=== PATIENT | male | born 1960 | race Caucasian/White ===

== ENCOUNTER 2017-05-11 15:59 | Inpatient (IN) | payer SELFPAY ==
[2017-05-11] MEDS ORDERED: methylPREDNISolone Sodium Succinate 125 MG/2 ML SDV IV ONE (16:00)
[2017-05-11] MEDS ORDERED: methylPREDNISolone Sodium Succinate 125 MG/2 ML SDV ONE (16:13)
[2017-05-11] MEDS ORDERED: Albuterol/Ipratropium 3.0-0.5 MG/3 ML Neb Soln INH ONE (16:15)
[2017-05-11] MEDS ORDERED: Acetaminophen 325 MG Tab PO ONE (18:25)
[2017-05-11 19:06] LABS: CHLORIDE,CL 106 mmol/L (98-110); SODIUM,NA 141 mmol/L (136-146)
[2017-05-11] MEDS ORDERED: hydrALAZINE 20 MG/ML SDV IVPUSH ONE (20:17)
[2017-05-11] MEDS ORDERED: Ondansetron 4 MG Tab.DIS PO PRN (20:17)
[2017-05-11] MEDS ORDERED: Temazepam 15 MG Cap PO PRN (20:17)
[2017-05-11] MEDS ORDERED: predniSONE 10 MG Tab PO SCH (20:30)
[2017-05-11] MEDS ORDERED: Levofloxacin/Dextrose 5%-Water 750 MG in Premix Bag 1 BAG IV SCH (20:30)
--- NOTE | 2017-05-11 20:42 | PCM.HP ---
H&P History of Present Illness - General Date of Service: 05/11/17 Admit Problem/Dx: Admission Diagnosis/Problem Admission Diagnosis/Problem Shortness of breath Source of Information: Patient History Limitations: Reports: No Limitations - History of Present Illness Initial Comments - Free Text/Narative: 56 yo male presented to ED with SOB starting at 3 am this morning with 35+ pack year smoking history. Patient states that around 3 am this morning patient woke with increasing shortness of breath. He was able to go back to sleep but in am when walking down the stairs from his 3 floor apartment the sob increased. He has had similar episodes previously but not as severe. He states that it took him "quite awhile" to get back up the stairs and when he did he knew he had to go into the ED for evaluation. He then drove himself to the ED. He denies any associated chest pain, nausea, or diaphoresis with the shortness of breath. In addition he states that he has not been eating well over the last few days and reports drinking no fluids. He also began to have a cough this am with clear to white sputum production. Patient has not seen a doctor for greater than 10 years. He has no know drug allergies. In the ED patient was found to be mildly hypoxic and required 2 L/nasal canula to maintain sats above 90%. He was given duo-nebs and 125 solumedrol which he states helped with his breathing. He was found to have Rhadomyolysis with a CK of 1661 and leukocytosis of 12k. EKG showed NSR with no acute signs of ischemia and troponin was neg. Rest of CMP was unremarkable. Patient was given IVF resus and started on Levaquin for possible CAP. Patient was admitted for shortness of breath with suspected COPD exacerbation, community acquired pneumonia, and rhabdomyolysis. abdominal pain Pain Score (Numeric/FACES): 10 - Related Data Allergies/Adverse Reactions: Allergies Allergy/AdvReac Type Severity Reaction Status Date / Time No Known Allergies Allergy Verified 05/11/17 18:43 Home Medications: Home Meds . [No Known Home Meds] 05/11/17 [History] Past Medical History Respiratory History: Reports: COPD - Past Surgical History Head Surgeries/Procedures: Reports: None Social & Family History - Family History Family Medical History: Noncontributory - Tobacco Use Smoking Status *Q: Current Every Day Smoker Years of Tobacco use: 30 Packs/Tins Daily: 1.5 Used Tobacco, but Quit: No Tobacco Use Comment: accepts nicotine patch, will inform Dr. Humphrey Second Hand Smoke Exposure: No - Caffeine Use Caffeine Use: Reports: Energy Drinks - Alcohol Use Days Per Week of Alcohol Use: 0 - Recreational Drug Use Recreational Drug Use: No H&P Review of Systems - Review of Systems: Review Of Systems: See Below General: Reports: Fatigue, Night Sweats. Denies: Fever, Chills, Malaise, Weakness, Diaphoresis HEENT: Denies: Headaches, Sinus Congestion, Sore Throat Pulmonary: Reports: Shortness of Breath, Wheezing, Cough, Sputum. Denies: Pleuritic Chest Pain Cardiovascular: Denies: Chest Pain, Palpitations, Edema Gastrointestinal: Reports: Nausea. Denies: Abdominal Pain, Anorexia, Black Stool, Bloody Stool, Constipation, Diarrhea, Vomiting Genitourinary: Denies: Dysuria, Hematuria Musculoskeletal: Denies: Neck Pain, Leg Pain Skin: Denies: Cyanosis Psychiatric: Reports: Anxiety. Denies: Confusion Neurological: Denies: Confusion, Dizziness, Headache Hematologic/Lymphatic: Denies: Anemia Exam - Exam Exam: See Below - Vital Signs Vital Signs: Last Vital Signs Temp Pulse 84 05/11/17 18:44 Resp 18 05/11/17 18:44 BP 192/92 H 05/11/17 18:44 Pulse Ox 96 05/11/17 18:44 Weight: 81.556 kg - Exam Quality Assessment: Supplemental Oxygen, DVT Prophylaxis General: Alert, Oriented, Cooperative HEENT: Conjunctiva Clear, EACs Clear, EOMI, Hearing Intact, Mucosa Moist & Tarrants , Nares Patent, Normal Nasal Septum, Posterior Pharynx Clear, PERRLA Neck: Supple, Trachea Midline, 2 Lungs: Normal Respiratory Effort, Crackles, Wheezing Cardiovascular: Regular Rate, Regular Rhythm, Normal S1, Normal S2 GI/Abdominal Exam: Normal Bowel Sounds, Soft, Non-Tender, No Organomegaly, No Distention Back Exam: Normal Inspection Extremities: Normal Inspection, Non-Tender, No Pedal Edema, Normal Capillary Refill Peripheral Pulses: 2+: Radial (L), Radial (R), Posterior Tibial (L), Posterior Tibial (R), Dorsalis Pedis (L), Dorsalis Pedis (R) Skin: Warm, Dry, Intact Neurological: Cranial Nerves Intact Neuro Extensive - Mental Status: Alert, Oriented x3, Normal Mood/Affect, Normal Cognition Neuro Extensive - Motor, Sensory, Reflexes: CN II-XII Intact Psychiatric: Alert, Normal Affect, Normal Mood - Patient Data Result Diagrams: 05/11/17 16:03 05/11/17 16:03 *Q Meaningful Use (ADM) - VTE *Q VTE Criteria *Q: - Stroke *Q Stroke Criteria *Q: - AMI *Q AMI Criteria *Q: - Problem List (1) COPD with exacerbation SNOMED Code(s): 664298049946148 ICD Code: J44.1 - CHRONIC OBSTRUCTIVE PULMONARY DISEASE W (ACUTE) EXACERBATION Status: Acute Priority: High Current Visit: Yes (2) Community acquired bacterial pneumonia SNOMED Code(s): 706579964 ICD Code: J15.9 - UNSPECIFIED BACTERIAL PNEUMONIA Status: Acute Priority : High Current Visit: Yes (3) Rhabdomyolysis SNOMED Code(s): 093380014 ICD Code: M62.82 - RHABDOMYOLYSIS Status: Acute Priority: High Current Visit: Yes Qualifiers: Rhabdomyolysis type: non-traumatic Qualified Code(s): M62.82 - Rhabdomyolysis (4) Nicotine dependence SNOMED Code(s): 35800079 ICD Code: F17.200 - NICOTINE DEPENDENCE, UNSPECIFIED, UNCOMPLICATED Status : Chronic Priority: Low Current Visit: Yes Qualifiers: Nicotine product type: cigarettes Substance use status: uncomplicated Qualified Code(s): F17.210 - Nicotine dependence, cigarettes, uncomplicated Problem List Initiated/Reviewed/Updated: Yes Orders Last 24hrs: Active Orders 24 hr Category Date Time Status Patient Status [ADT] Routine ADT 05/11/17 20:17 Ordered Antiembolic Devices [RC] PER UNIT ROUTINE Care 05/11/17 20:20 Ordered Oxygen Therapy [RC] PRN Care 05/11/17 20:17 Ordered RT Aerosol Therapy [RC] ASDIRECTED Care 05/11/17 20:20 Ordered Up With Assistance [RC] ASDIRECTED Care 05/11/17 20:17 Ordered VTE/DVT Education [RC] PER UNIT ROUTINE Care 05/11/17 20:17 Ordered Vital Signs [RC] Q4H Care 05/11/17 20:17 Ordered Regular Diet [DIET] Diet 05/11/17 Breakfast Ordered Chest 2V [CR] Stat Exams 05/11/17 20:17 Ordered CBC WITH AUTO DIFF [HEME] AM Lab 05/12/17 05:11 Ordered CBC WITH AUTO DIFF [HEME] AM Lab 05/13/17 05:11 Ordered CBC WITH AUTO DIFF [HEME] AM Lab 05/14/17 05:11 Ordered CBC WITH AUTO DIFF [HEME] AM Lab 05/15/17 05:11 Ordered COMPREHENSIVE METABOLIC PN,CMP [CHEM] AM Lab 05/12/17 05:11 Ordered COMPREHENSIVE METABOLIC PN,CMP [CHEM] AM Lab 05/13/17 05:11 Ordered COMPREHENSIVE METABOLIC PN,CMP [CHEM] AM Lab 05/14/17 05:11 Ordered COMPREHENSIVE METABOLIC PN,CMP [CHEM] AM Lab 05/15/17 05:11 Ordered CREATINE KINASE,CK [CHEM] AM Lab 05/12/17 05:11 Ordered CREATINE KINASE,CK [CHEM] AM Lab 05/13/17 05:11 Ordered CREATINE KINASE,CK [CHEM] AM Lab 05/14/17 05:11 Ordered CREATINE KINASE,CK [CHEM] AM Lab 05/15/17 05:11 Ordered CULTURE SPUTUM + SMEAR [RM] Routine Lab 05/11/17 20:17 Uncollected MAGNESIUM [CHEM] AM Lab 05/12/17 05:11 Ordered PHOSPHORUS [CHEM] AM Lab 05/12/17 05:11 Ordered Acetaminophen [Tylenol] Med 05/11/17 20:17 Ordered 650 mg PO Q4H PRN Albuterol/Ipratropium [DuoNeb 3.0-0.5 MG/3 ML] Med 05/11/17 22:00 Ordered 3 ml NEB Q4HRRT Enoxaparin [Lovenox] Med 05/11/17 20:30 Ordered 40 mg SUBCUT DAILY Levofloxacin/Dextrose 5%-Water [Levaquin in D5W 750 MG/ Med 05/11/17 20:30 Ordered 150 ML] 750 mg Premix Bag 1 bag IV Q24H Nicotine [Habitrol] Med 05/11/17 20:30 Ordered 14 mg TRDERM DAILY Ondansetron [Zofran ODT] Med 05/11/17 20:17 Ordered 4 mg PO Q4H PRN Sodium Chloride 0.9% [Normal Saline] 1,000 ml Med 05/11/17 20:30 Ordered IV ASDIRECTED Temazepam [Restoril] Med 05/11/17 20:17 Ordered 15 mg PO BEDTIME PRN hydrALAZINE [Apresoline] Med 05/11/17 20:17 Once 10 mg IVPUSH ONETIME ONE predniSONE Med 05/11/17 20:30 Ordered 60 mg PO DAILY Sequential Compression Device [OM.PC] Per Unit Routine Oth 05/11/17 20:19 Ordered Resuscitation Status Routine Resus Stat 05/11/17 20:17 Ordered Assessment/Plan Comment:: 56 yo male admitted 05/11/17 for shortness of breath, suspected COPD exacerbation, community acquired pneumonia, and rhabdomyolysis. SOB: 35+ pack yr smoking history strongly suspect COPD exacerbation. Improved with duo-nebs and solumedrol in ED. Will cont. scheduled duo-nebs and start patient on 60 mg prednisone PO. No significant respiratory distress at this time. Ween O2 as tolerated. Rhabdo: CK 1661 Suspect severe dehydration as etiology. No history of recent trauma. Will IVF resus with NS 200 ml/hr with strict I/O. Monitor K, kidney function, and calcium. CK daily. Consider bicarb if CK>5000. CAP: Low suspecion but will get repeat CXR and place on 750 Levaquin q day. Htn: May be anxiety related will give 10 hydralazine now and monitor may need to start oral medication if continues to be elevated. Nicotine dependence: Patient does want to quite smoking. Is currently a 1 pk a day smoker. Will give transdermal nicotine replacement 14 mg and provide patient with smoking cessation help. VTE proph:SCD, Lovenox. Dispo: 2-3 days
[2017-05-11] MEDS: Nicotine 14 MG/24 Hr Patch TRDERM SCH (20:53)
[2017-05-11] MEDS: Enoxaparin 40 MG/0.4 ML Syringe SUBCUT SCH (20:54)
[2017-05-11] MEDS: Sodium Chloride 0.9% 1,000 ML IV SCH (20:59)
[2017-05-11] MEDS: Albuterol/Ipratropium 3.0-0.5 MG/3 ML Neb Soln NEB SCH (21:16)
[2017-05-11] MEDS: LORazepam 0.5 MG Tab PO PRN (23:31)
[2017-05-12] MEDS: Albuterol/Ipratropium 3.0-0.5 MG/3 ML Neb Soln NEB SCH ×6 (01:52→22:36)
[2017-05-12] MEDS: Sodium Chloride 0.9% 1,000 ML IV SCH ×4 (03:22→19:07)
[2017-05-12] MEDS: Acetaminophen 325 MG Tab PO PRN ×2 (05:36→14:29)
[2017-05-12] MEDS: LORazepam 0.5 MG Tab PO PRN (05:36)
[2017-05-12 07:40] LABS: CHLORIDE,CL 109 mmol/L (98-110); SODIUM,NA 139 mmol/L (136-146)
[2017-05-12] MEDS ORDERED: Levofloxacin 500 MG Tab ONE (08:24)
[2017-05-12] MEDS: Enoxaparin 40 MG/0.4 ML Syringe SUBCUT SCH (08:30)
[2017-05-12] MEDS: Nicotine 14 MG/24 Hr Patch TRDERM SCH (08:30)
[2017-05-12] MEDS: Metoprolol Tartrate 50 MG Tab PO SCH ×2 (08:31→20:14)
--- NOTE | 2017-05-12 08:50 | PCM.PN ---
- General Info Date of Service: 05/12/17 Admission Dx/Problem (Free Text): Admission Diagnosis/Problem Admission Diagnosis/Problem Shortness of breath Subjective Update: Feels better this morning after duo-nebs and steroids. Still having generalized anxiety over being in the hospital. Temazepam only worked for 1 hr last evening but Ativan helped more. Denies any pain. Some cough with clear/ white sputum production. No chest pain, palpitations. Feels breathing improved. Appetite has returned and he is now eating and drinking without difficulty. Functional Status: Reports: Pain Controlled - Review of Systems General: Denies: Fever, Weakness, Fatigue HEENT: Denies: Headaches, Visual Changes Pulmonary: Reports: Shortness of Breath, Cough, Sputum, Wheezing. Denies: Pleuritic Chest Pain, Hemoptysis Cardiovascular: Denies: Chest Pain, Palpitations Gastrointestinal: Denies: Abdominal Pain, Constipation, Diarrhea, Nausea, Vomiting Genitourinary: Denies: Dysuria, Hematuria Musculoskeletal: Denies: Neck Pain, Leg Pain Skin: Denies: Cyanosis Neurological: Denies: Confusion, Dizziness, Headache Psychiatric: Reports: Anxiety. Denies: Confusion - Patient Data Vitals - Most Recent: Last Vital Signs Temp 98.1 F 05/12/17 07:53 Pulse 80 05/12/17 08:31 Resp 18 05/12/17 07:53 BP 179/84 H 05/12/17 08:31 Pulse Ox 95 05/12/17 07:53 Weight - Most Recent: 81.556 kg I&O - Last 24 Hours: Intake & Output 05/11/17 05/12/17 05/12/17 22:59 06:59 14:59 Intake Total 1254 Output Total 850 Balance 404 Lab Results Last 24 Hours: Laboratory Results - last 24 hr 05/12/17 05/12/17 Range/Units 06:12 06:12 WBC 8.77 (4.0-11.0) K/uL RBC 4.69 (4.50-5.90) M/uL Hgb 14.4 (13.0-17.0) g/dL Hct 42.3 (38.0-50.0) % MCV 90.2 (80.0-98.0) fL MCH 30.7 (27.0-32.0) pg MCHC 34.0 (31.0-37.0) g/dL RDW Std Deviation 48.1 (28.0-62.0) fl RDW Coeff of Shannan 15 (11.0-15.0) % Plt Count 272 (150-400) K/uL MPV 9.70 (7.40-12.00) fL Neut % (Auto) 90.3 H (48.0-80.0) % Lymph % (Auto) 7.0 L (16.0-40.0) % [place] % (Auto) 2.6 (0.0-15.0) % Eos % (Auto) 0.0 (0.0-7.0) % Baso % (Auto) 0.1 (0.0-1.5) % Neut # (Auto) 7.9 H (1.4-5.7) K/uL Lymph # (Auto) 0.6 (0.6-2.4) K/uL [place] # (Auto) 0.2 (0.0-0.8) K/uL Eos # (Auto) 0.0 (0.0-0.7) K/uL Baso # (Auto) 0.0 (0.0-0.1) K/uL Nucleated RBC % 0.0 /100WBC Nucleated RBCs # 0 K/uL Sodium 139 (136-146) mmol/L Potassium 3.7 (3.5-5.1) mmol/L Chloride 109 (98-110) mmol/L Carbon Dioxide 20 L (21-31) mmol/L BUN 13 (6.0-23.0) mg/dL Creatinine 0.7 (0.6-1.5) mg/dL Est Cr Clr Drug Dosing 109.42 mL/min Estimated GFR (MDRD) > 60.0 ml/min Glucose 135 H (60-110) mg/dL Calcium 8.7 L (8.8-10.8) mg/dL Phosphorus 2.3 L (2.4-4.7) mg/dL Magnesium 1.3 L (1.5-2.3) mEq/L Total Bilirubin 0.4 (0.1-1.5) mg/dL AST 33 (5-40) IU/L ALT 35 (8-54) IU/L Alkaline Phosphatase 101 (40-150) Creatine Kinase 931 H (9-236) IU/L Total Protein 6.8 (6.0-8.0) g/dL Albumin 3.8 (3.5-5.0) g/dL Globulin 3.0 (2.0-3.5) g/dL Albumin/Globulin Ratio 1.3 (1.3-2.8) Behzad Results Last 24 Hours: Microbiology 05/12/17 02:15 Gram Stain - Preliminary Sputum - Expectorated Med Orders - Current: Current Medications Acetaminophen (Tylenol) 650 mg PO Q4H PRN PRN Reason: Pain (Mild 1-3)/fever Last Admin: 05/12/17 05:36 Dose: 650 mg Albuterol/Ipratropium (Duoneb 3.0-0.5 Mg/3 Ml) 3 ml NEB Q4HRRT [facility] Last Admin: 05/12/17 05:58 Dose: 3 ml Enoxaparin Sodium (Lovenox) 40 mg SUBCUT DAILY [facility] Last Admin: 05/12/17 08:30 Dose: 40 mg Sodium Chloride (Normal Saline) 1,000 mls @ 200 mls/hr IV ASDIRECTED [facility] Last Admin: 05/12/17 08:30 Dose: 200 mls/hr Levofloxacin (Levaquin) 750 mg PO Q24H [facility] Lorazepam (Ativan) 0.5 mg PO Q6H PRN PRN Reason: Anxiety Last Admin: 05/12/17 05:36 Dose: 0.5 mg Metoprolol Tartrate (Lopressor) 50 mg PO BID [facility] Last Admin: 05/12/17 08:31 Dose: 50 mg Nicotine (Habitrol) 14 mg TRDERM DAILY [facility] Last Admin: 05/12/17 08:30 Dose: 14 mg Ondansetron HCl (Zofran Odt) 4 mg PO Q4H PRN PRN Reason: nausea, able to take PO Prednisone (Prednisone) 60 mg PO DAILY [facility] Temazepam (Restoril) 15 mg PO BEDTIME PRN PRN Reason: Sleep Last Admin: 05/11/17 20:59 Dose: 15 mg Discontinued Medications Hydralazine HCl (Apresoline) 10 mg IVPUSH ONETIME ONE Stop: 05/11/17 20:18 Last Admin: 05/11/17 20:53 Dose: 10 mg Levofloxacin/Dextrose 750 mg/ (Premix) 150 mls @ 100 mls/hr IV Q24H [facility] Last Admin: 05/11/17 20:53 Dose: 100 mls/hr Levofloxacin (Levaquin) Confirm Administered Dose 1,000 mg .ROUTE .STK-MED ONE Stop: 05/12/17 08:25 Last Admin: 05/12/17 08:32 Dose: 1,000 mg Prednisone (Prednisone) 60 mg PO DAILY [facility] Last Admin: 05/11/17 20:54 Dose: 60 mg - Exam Quality Assessment: Supplemental Oxygen, DVT Prophylaxis General: Alert, Oriented, Cooperative, No Acute Distress HEENT: Pupils Equal, Pupils Reactive, EOMI, Mucous Membr. Moist/[place] Neck: Supple, Trachea Midline Lungs: Normal Respiratory Effort, Wheezing Cardiovascular: Regular Rate, Regular Rhythm, No Murmurs GI/Abdominal Exam: Normal Bowel Sounds, Soft, Non-Tender, No Organomegaly, No Distention Back Exam: Normal Inspection Extremities: Normal Inspection, Non-Tender, No Pedal Edema, Normal Capillary Refill Peripheral Pulses: 2+: Radial (L), Radial (R), Posterior Tibial (L), Posterior Tibial (R), Dorsalis Pedis (L), Dorsalis Pedis (R) Skin: Warm, Dry, Intact Wound/Incisions: Healing Well Neurological: No New Focal Deficit Psy/Mental Status: Alert, Normal Affect, Normal Mood - Problem List & Annotations (1) COPD with exacerbation SNOMED Code(s): 701766014566895 Code(s): J44.1 - CHRONIC OBSTRUCTIVE PULMONARY DISEASE W (ACUTE) EXACERBATION Status: Acute Priority: High Current Visit: Yes (2) Community acquired bacterial pneumonia SNOMED Code(s): 502723443 Code(s): J15.9 - UNSPECIFIED BACTERIAL PNEUMONIA Status: Acute Priority: High Current Visit: Yes (3) Rhabdomyolysis SNOMED Code(s): 677972438 Code(s): M62.82 - RHABDOMYOLYSIS Status: Acute Priority: High Current Visit: Yes Qualifiers: Rhabdomyolysis type: non-traumatic Qualified Code(s): M62.82 - Rhabdomyolysis (4) Nicotine dependence SNOMED Code(s): 12562943 Code(s): F17.200 - NICOTINE DEPENDENCE, UNSPECIFIED, UNCOMPLICATED Status: Chronic Priority: Low Current Visit: Yes Qualifiers: Nicotine product type: cigarettes Substance use status: uncomplicated Qualified Code(s): F17.210 - Nicotine dependence, cigarettes, uncomplicated - Problem List Review Problem List Initiated/Reviewed/Updated: Yes - My Orders Last 24 Hours: My Active Orders 05/11/17 20:17 Patient Status [ADT] Routine Oxygen Therapy [RC] PRN Up With Assistance [RC] ASDIRECTED VTE/DVT Education [RC] PER UNIT ROUTINE Vital Signs [RC] Q4H Acetaminophen [Tylenol] 650 mg PO Q4H PRN Ondansetron [Zofran ODT] 4 mg PO Q4H PRN Temazepam [Restoril] 15 mg PO BEDTIME PRN Resuscitation Status Routine 05/11/17 20:19 Sequential Compression Device [OM.PC] Per Unit Routine 05/11/17 20:20 Antiembolic Devices [RC] PER UNIT ROUTINE RT Aerosol Therapy [RC] ASDIRECTED 05/11/17 20:30 Enoxaparin [Lovenox] 40 mg SUBCUT DAILY Nicotine [Habitrol] 14 mg TRDERM DAILY Sodium Chloride 0.9% [Normal Saline] 1,000 ml IV ASDIRECTED 05/11/17 22:00 Albuterol/Ipratropium [DuoNeb 3.0-0.5 MG/3 ML] 3 ml NEB Q4HRRT 05/11/17 23:19 LORazepam [Ativan] 0.5 mg PO Q6H PRN 05/12/17 02:15 CULTURE SPUTUM + SMEAR [RM] Routine 05/12/17 09:00 Chest 2V [CR] Stat Metoprolol Tartrate [Lopressor] 50 mg PO BID predniSONE 60 mg PO DAILY 05/12/17 21:00 Levofloxacin [Levaquin] 750 mg PO Q24H 05/13/17 05:11 CBC WITH AUTO DIFF [HEME] AM COMPREHENSIVE METABOLIC PN,CMP [CHEM] AM CREATINE KINASE,CK [CHEM] AM 05/14/17 05:11 CBC WITH AUTO DIFF [HEME] AM COMPREHENSIVE METABOLIC PN,CMP [CHEM] AM CREATINE KINASE,CK [CHEM] AM 05/15/17 05:11 CBC WITH AUTO DIFF [HEME] AM COMPREHENSIVE METABOLIC PN,CMP [CHEM] AM CREATINE KINASE,CK [CHEM] AM - Plan Plan:: 56 yo male admitted 05/11/17 for shortness of breath, suspected COPD exacerbation, community acquired pneumonia, and rhabdomyolysis. SOB: Strongly suspect COPD. Continues to improve with duo-nebs and oral prednisone. Will cont. scheduled duo-nebs and 60 mg prednisone PO. Ween O2 as tolerated. Rhabdo: CK down from 1661 to 931 this am. Suspect severe dehydration as etiology. No history of recent trauma. Cont. IVF resus with NS 200 ml/hr with strict I/O. Cont. to monitor K, kidney function, and calcium. CK daily. Consider bicarb if CK>5000. CAP: Low suspecion. CXR now available revealed bullous changes involving both lung apices but no infiltration. Patient did have leukocytosis of 12k on admission but most likely related to stress reaction. Secondary to COPD, leukocytosis will continue Levaquin orally Day 2. Htn: Did give patient 2 doses of 10 mg hydralazine since admission. Started Lopressor 50 mg BID this am. Somewhat anxiety related but most likely underlying essential hypertension. Did give Ativan last evening which seemed to help with BP as well as sleep. Cont. Ativan 1 mg q 6 prn Nicotine dependence: Cont. nicotine replacement. Patient does want to quite. Provide patient with smoking cessation information. VTE proph:SCD, Lovenox. Dispo: 1-2 days
[2017-05-12] MEDS: predniSONE 20 MG Tab PO SCH (09:06)
[2017-05-12] MEDS ORDERED: hydrALAZINE 20 MG/ML SDV IVPUSH ONE (11:51)
[2017-05-12] MEDS: Benzocaine/Cetylpyridinium/Menthol Lozenge MUCMEM PRN ×2 (14:29→20:16)
[2017-05-12] MEDS: LORazepam 1 MG Tab PO PRN (14:35)
[2017-05-12] MEDS ORDERED: Temazepam 15 MG Cap PO PRN (19:05)
[2017-05-12] MEDS ORDERED: Levofloxacin 250 MG Tab PO SCH (21:00)
[2017-05-13] MEDS: Sodium Chloride 0.9% 1,000 ML IV SCH ×3 (00:22→10:05)
[2017-05-13] MEDS: Albuterol/Ipratropium 3.0-0.5 MG/3 ML Neb Soln NEB SCH ×3 (02:03→09:56)
[2017-05-13] MEDS: LORazepam 1 MG Tab PO PRN (03:33)
[2017-05-13 05:45] LABS: CHLORIDE,CL 114 mmol/L (98-110); SODIUM,NA 142 mmol/L (136-146)
[2017-05-13] MEDS: predniSONE 20 MG Tab PO SCH (08:12)
[2017-05-13] MEDS: Nicotine 14 MG/24 Hr Patch TRDERM SCH (08:12)
[2017-05-13] MEDS: Metoprolol Tartrate 50 MG Tab PO SCH (08:13)
[2017-05-13] MEDS: Enoxaparin 40 MG/0.4 ML Syringe SUBCUT SCH (08:13)
[2017-05-13] MEDS ORDERED: Lisinopril 10 MG Tab PO SCH (10:45)
[2017-05-13 10:55] VITALS: BP 140/89
--- NOTE | 2017-05-13 11:40 | PCM.DCSUM1 ---
Discharge Summary - Hospital Course Brief History: 56 yo male presented to ED with SOB with 35+ pack year smoking history. Patient states that around 3 am this morning patient woke with increasing shortness of breath. He was able to go back to sleep but in am when walking down the stairs from his 3 floor apartment the sob increased. He has had similar episodes previously but not as severe. He states that it took him "quite awhile" to get back up the stairs and when he did he knew he had to go into the ED for evaluation. He then drove himself to the ED. He denies any associated chest pain, nausea, or diaphoresis with the shortness of breath. In addition he states that he has not been eating well over the last few days and reports drinking no fluids. He also began to have a cough this am with clear to white sputum production. Patient has not seen a doctor for greater than 10 years. He has no know drug allergies. In the ED patient was found to be mildly hypoxic and required 2 L/nasal canula to maintain sats above 90%. He was given duo-nebs and 125 solumedrol which he states helped with his breathing. He was found to have Rhadomyolysis with a CK of 1661 and leukocytosis of 12k. EKG showed NSR with no acute signs of ischemia and troponin was neg. Rest of CMP was unremarkable. Patient was given IVF resus and started on Levaquin for possible CAP. Patient was admitted for shortness of breath with suspected COPD exacerbation, community acquired pneumonia, and rhabdomyolysis. - Discharge Data Discharge Date: 05/13/17 Discharge Disposition: Home, Self-Care 01 Condition: Good - Discharge Diagnosis/Problem(s) (1) COPD with exacerbation SNOMED Code(s): 934306551136733 ICD Code: J44.1 - CHRONIC OBSTRUCTIVE PULMONARY DISEASE W (ACUTE) EXACERBATION Status: Acute Priority: High Current Visit: Yes (2) Community acquired bacterial pneumonia SNOMED Code(s): 415370958 ICD Code: J15.9 - UNSPECIFIED BACTERIAL PNEUMONIA Status: Acute Priority : High Current Visit: Yes (3) Rhabdomyolysis SNOMED Code(s): 518098961 ICD Code: M62.82 - RHABDOMYOLYSIS Status: Acute Priority: High Current Visit: Yes Qualifiers: Rhabdomyolysis type: non-traumatic Qualified Code(s): M62.82 - Rhabdomyolysis (4) Nicotine dependence SNOMED Code(s): 50782187 ICD Code: F17.200 - NICOTINE DEPENDENCE, UNSPECIFIED, UNCOMPLICATED Status : Chronic Priority: Low Current Visit: Yes Qualifiers: Nicotine product type: cigarettes Substance use status: uncomplicated Qualified Code(s): F17.210 - Nicotine dependence, cigarettes, uncomplicated - Patient Instructions Diet: Regular Diet as Tolerated Activity: As Tolerated Driving: May Drive Today Showering/Bathing: May Shower Notify Provider of: Fever, Increased Pain, Swelling and Redness, Drainage, Nausea and/or Vomiting Other/Special Instructions: Smoking cessation encouraged! - Discharge Plan Prescriptions/Med Rec: Albuterol [IJP: Ventolin HFA] 1 puff INH Q4H PRN #1 inh PRN Reason: SOB/wheezing Levofloxacin [Levaquin] 750 mg PO DAILY #5 tablet Lisinopril [Prinivil] 10 mg PO DAILY #30 tablet Metoprolol Tartrate [Lopressor] 50 mg PO BID #60 tablet Mometasone/Formoterol [Dulera 100-5 MCG] 2 puff IH BID #1 inhaler Nicotine [Habitrol] 14 mg TRDERM DAILY #1 box predniSONE [Prednisone] 10 - 60 mg PO DAILY #36 tablet Home Medications: Home Meds Albuterol [IJP: Ventolin HFA] 1 puff INH Q4H PRN #1 inh 05/13/17 [Rx] Benzocaine/Cetylpyrd/Menthol [Cepacol Sore Throat] 1 lozenge MUCMEM Q4H PRN chester 05/13/17 [Rx] Levofloxacin [Levaquin] 750 mg PO DAILY #5 tablet 05/13/17 [Rx] Lisinopril [Prinivil] 10 mg PO DAILY #30 tablet 05/13/17 [Rx] Metoprolol Tartrate [Lopressor] 50 mg PO BID #60 tablet 05/13/17 [Rx] Mometasone/Formoterol [Dulera 100-5 MCG] 2 puff IH BID #1 inhaler 05/13/17 [Rx] Nicotine [Habitrol] 14 mg TRDERM DAILY #1 box 05/13/17 [Rx] predniSONE [Prednisone] 10 - 60 mg PO DAILY #36 tablet 05/13/17 [Rx] Patient Handouts: Chronic Obstructive Pulmonary Disease Exacerbation, Easy-to- Read, Rhabdomyolysis, Metoprolol tablets, Albuterol inhalation aerosol, Formoterol; Mometasone metered dose inhaler, Lisinopril tablets, Levofloxacin tablets, Nicotine skin patches, Prednisone tablets, Community-Acquired Pneumonia , Adult, [id number] Referrals: Josh Oviedo MD [Physician] - 05/20/17 8:30 am - Discharge Summary/Plan Comment DC Time >30 min.: No Discharge Summary/Plan Comment: Discharge Diagnoses: Suspected COPD exacerbation Community acquired pneumonia HTN Anxiety Mariano was admitted and treated with Levaquin for CAP. He was also treated for suspected COPD exacerbation, no PFTs in past but with long standing history of tobacco use. He was treated with Prednisone 60 mg daily and Duonebs. He continued to improved and leukocytosis improved. He was also noted to have mild rhabdomyolysis likely secondary to dehydration and acute illness. He was treated with IVFs and CPK today is 481. Patient is requesting discharge home. He is no longer needing oxygen and SOB has improved. BP and HR were noted to be elevated, which may be from IVFs and DUonebs. He was started on metoprolol and Lisniopril to controll BP, which it has done ok. He was encouraged to follow up with PCP, which he will be set up with a new provider. It is highly recommended to obtain PFTs when acute illness and exacerbation is clear to evaluate for COPD. He was discharged home on Prednisone taper, Levaquin for 5 more days, Albuterol rescue inhaler, Dulera BID, Lopressor 50 mg BID and Lisinopril 10 mg daily. He reports he may not be able to get all of these medications, but he was encouraged to obtain all that he could as they are all very important, but for sure the Levaquin and Prednisone. He is to return to ED or clinic if concerns should arise. - General Info Date of Service: 05/13/17 Admission Dx/Problem (Free Text: Admission Diagnosis/Problem Admission Diagnosis/Problem Shortness of breath Subjective Update: Sitting on edge of bed, reports feeling good, No chest pain or SOB. Requesting discharge home today. Functional Status: Reports: Pain Controlled, Tolerating Diet, Ambulating, Urinating - Review of Systems General: Reports: No Symptoms. Denies: Fever, Weakness, Fatigue Pulmonary: Reports: No Symptoms. Denies: Shortness of Breath, Wheezing Cardiovascular: Reports: No Symptoms. Denies: Chest Pain, Lightheadedness Gastrointestinal: Reports: No Symptoms. Denies: Abdominal Pain, Nausea, Vomiting Skin: Reports: No Symptoms. Denies: Cyanosis Neurological: Reports: No Symptoms. Denies: Confusion Psychiatric: Reports: No Symptoms. Denies: Confusion - Patient Data Vitals - Most Recent: Last Vital Signs Temp 98.3 F 05/13/17 08:00 Pulse 79 05/13/17 08:13 Resp 18 05/13/17 08:00 BP 140/89 05/13/17 10:54 Pulse Ox 94 L 05/13/17 08:00 Weight - Most Recent: 81.556 kg I&O - Last 24 hours: Intake & Output 05/12/17 05/13/17 05/13/17 22:59 06:59 14:59 Intake Total 2662 2666 Output Total 1025 630 Balance 1637 2036 Lab Results - Last 24 hrs: Laboratory Results - last 24 hr 05/13/17 05/13/17 05/13/17 Range/Units 04:56 04:56 08:56 WBC 10.80 (4.0-11.0) K/uL RBC 4.25 L (4.50-5.90) M/uL Hgb 12.9 L (13.0-17.0) g/dL Hct 38.9 (38.0-50.0) % MCV 91.5 (80.0-98.0) fL MCH 30.4 (27.0-32.0) pg MCHC 33.2 (31.0-37.0) g/dL RDW Std Deviation 49.7 (28.0-62.0) fl RDW Coeff of Shannan 15 (11.0-15.0) % Plt Count 262 (150-400) K/uL MPV 10.00 (7.40-12.00) fL Neut % (Auto) 76.5 (48.0-80.0) % Lymph % (Auto) 15.7 L (16.0-40.0) % [place] % (Auto) 6.9 (0.0-15.0) % Eos % (Auto) 0.6 (0.0-7.0) % Baso % (Auto) 0.3 (0.0-1.5) % Neut # (Auto) 8.3 H (1.4-5.7) K/uL Lymph # (Auto) 1.7 (0.6-2.4) K/uL [place] # (Auto) 0.7 (0.0-0.8) K/uL Eos # (Auto) 0.1 (0.0-0.7) K/uL Baso # (Auto) 0.0 (0.0-0.1) K/uL Nucleated RBC % 0.0 /100WBC Nucleated RBCs # 0 K/uL Sodium 142 (136-146) mmol/L Potassium 3.7 (3.5-5.1) mmol/L Chloride 114 H (98-110) mmol/L Carbon Dioxide 21 (21-31) mmol/L BUN 16 (6.0-23.0) mg/dL Creatinine 0.7 (0.6-1.5) mg/dL Est Cr Clr Drug Dosing 109.42 mL/min Estimated GFR (MDRD) > 60.0 ml/min Glucose 96 (60-110) mg/dL Calcium 8.1 L (8.8-10.8) mg/dL Phosphorus 2.2 L (2.4-4.7) mg/dL Magnesium 1.6 (1.5-2.3) mEq/L Total Bilirubin 0.4 (0.1-1.5) mg/dL AST 24 (5-40) IU/L ALT 25 (8-54) IU/L Alkaline Phosphatase 75 (40-150) Creatine Kinase 481 H (9-236) IU/L Total Protein 5.6 L (6.0-8.0) g/dL Albumin 3.3 L (3.5-5.0) g/dL Globulin 2.3 (2.0-3.5) g/dL Albumin/Globulin Ratio 1.4 (1.3-2.8) COURTNEY Results - Last 24 hrs: Microbiology 05/12/17 02:15 Gram Stain - Preliminary Sputum - Expectorated Med Orders - Current: Current Medications Acetaminophen (Tylenol) 650 mg PO Q4H PRN PRN Reason: Pain (Mild 1-3)/fever Last Admin: 05/12/17 14:29 Dose: 650 mg Albuterol/Ipratropium (Duoneb 3.0-0.5 Mg/3 Ml) 3 ml NEB Q4HRRT [facility] Last Admin: 05/13/17 09:56 Dose: 3 ml Benzocaine/Menthol (Cepacol Sore Throat) 1 lozenge MUCMEM Q4H PRN PRN Reason: Sore Throat Last Admin: 05/12/17 20:16 Dose: 1 lozenge Enoxaparin Sodium (Lovenox) 40 mg SUBCUT DAILY [facility] Last Admin: 05/13/17 08:13 Dose: 40 mg Sodium Chloride (Normal Saline) 1,000 mls @ 200 mls/hr IV ASDIRECTED [facility] Last Admin: 05/13/17 10:05 Dose: 200 mls/hr Levofloxacin (Levaquin) 750 mg PO Q24H [facility] Last Admin: 05/12/17 20:14 Dose: 750 mg Lisinopril (Prinivil) 10 mg PO DAILY [facility] Last Admin: 05/13/17 10:54 Dose: 10 mg Lorazepam (Ativan) 1 mg PO Q6H PRN PRN Reason: Anxiety Last Admin: 05/13/17 03:33 Dose: 1 mg Metoprolol Tartrate (Lopressor) 50 mg PO BID [facility] Last Admin: 05/13/17 08:13 Dose: 50 mg Nicotine (Habitrol) 14 mg TRDERM DAILY [facility] Last Admin: 05/13/17 08:12 Dose: 14 mg Ondansetron HCl (Zofran Odt) 4 mg PO Q4H PRN PRN Reason: nausea, able to take PO Prednisone (Prednisone) 60 mg PO DAILY [facility] Last Admin: 05/13/17 08:12 Dose: 60 mg Temazepam (Restoril) 15 mg PO BEDTIME PRN PRN Reason: Insomnia Last Admin: 05/12/17 20:15 Dose: 15 mg Discontinued Medications Acetaminophen (Tylenol) 650 mg PO .STK-MED ONE Stop: 05/11/17 18:26 Albuterol/Ipratropium (Duoneb 3.0-0.5 Mg/3 Ml) 3 ml INH .STK-MED ONE Stop: 05/11/17 16:16 Hydralazine HCl (Apresoline) 10 mg IVPUSH ONETIME ONE Stop: 05/11/17 20:18 Last Admin: 05/11/17 20:53 Dose: 10 mg Hydralazine HCl (Apresoline) 10 mg IVPUSH STAT ONE Stop: 05/12/17 11:52 Last Admin: 05/12/17 12:01 Dose: 10 mg Levofloxacin/Dextrose 750 mg/ (Premix) 150 mls @ 100 mls/hr IV Q24H GALINDO Last Admin: 05/11/17 20:53 Dose: 100 mls/hr Levofloxacin (Levaquin) Confirm Administered Dose 1,000 mg .ROUTE .STK-MED ONE Stop: 05/12/17 08:25 Last Admin: 05/12/17 08:32 Dose: 1,000 mg Lorazepam (Ativan) 0.5 mg PO Q6H PRN PRN Reason: Anxiety Last Admin: 05/12/17 05:36 Dose: 0.5 mg Methylprednisolone Sodium Succinate (Solu-Medrol) 125 mg .ROUTE .STK-MED ONE Stop: 05/11/17 16:14 Prednisone (Prednisone) 60 mg PO DAILY GALINDO Last Admin: 05/11/17 20:54 Dose: 60 mg Temazepam (Restoril) 15 mg PO BEDTIME PRN PRN Reason: Sleep Last Admin: 05/11/17 20:59 Dose: 15 mg - Exam General: Reports: Alert, Oriented, Cooperative, No Acute Distress Neck: Reports: Supple Lungs: Reports: Normal Respiratory Effort, Wheezing (scant throughout) Cardiovascular: Reports: Regular Rate, Regular Rhythm GI/Abdominal Exam: Normal Bowel Sounds, Soft, Non-Tender, No Organomegaly, No Distention, No Abnormal Bruit, No Mass, Pelvis Stable Extremities: Normal Inspection, Normal Range of Motion, Non-Tender, No Pedal Edema, Normal Capillary Refill Neurological: Reports: No New Focal Deficit Psy/Mental Status: Reports: Alert, Normal Affect, Normal Mood *Q Meaningful Use (DIS) - VTE *Q VTE Criteria *Q: - Stroke *Q Stroke Criteria *Q: - AMI *Q AMI Criteria *Q:
--- NOTE | 2017-05-13 15:49 | CR ---
EXAM DATE: 05/11/17 PATIENT'S AGE: 56 Patient: DANIELA BEE Facility: [place], [place] Site . Site : [id number] Study: XRay Chest [id number] 11:15:37 PM Ordering Physician: Kam Garcia Final Report: INDICATION: Chest pain shortness of breath TECHNIQUE: Chest 1 view. COMPARISON: None FINDINGS: Cardiovascular and mediastinum: Heart size and vasculature are normal in caliber and appearance. Mediastinum is within normal limits. Lungs and pleural space: Lungs are clear. No sign of infiltrate or mass. No sign of pleural effusion. No pneumothorax. Bullous changes involving both lung apices. Bones and soft tissues: No significant findings. IMPRESSION: Bullous changes involving both lung apices. Dictated by Andrae Mortensen MD @ 05/11/2017 11:43:43 PM Dictated by: Andrae Mortensen MD @ 05/11/2017 23:44:00 (Electronic Signature) Report Signed by Proxy. IVELISSE
== END 2017-05-13 12:30 | disposition home or self-care (01) | DRG 190 ==
LOC: MW.ED 15:59 → MW.MS 17:27
PROVIDERS: ADMIT Family Medicine; ATTEND Family Medicine
DX: J44.0 Chronic obstructive pulmonary disease with (acute) lower respiratory infection (principal); J15.9 Unspecified bacterial pneumonia; M62.82 Rhabdomyolysis; E86.0 Dehydration; J44.1 Chronic obstructive pulmonary disease with (acute) exacerbation; F17.210 Nicotine dependence, cigarettes, uncomplicated; I10 Essential (primary) hypertension; F41.9 Anxiety disorder, unspecified
CPT/HCPCS: 36415; 71010; 71010-26; 80053; 82550; 82553; 83735; 84100; 84484; 85025; 87070; 87205; 93005; 94640; 96361; 96365; 96375; 99283; 99285-25; A9270-GY; J0360; J1650; J1956; J2930; J7040

== ENCOUNTER 2018-07-20 02:20 | Emergency (ER) | payer SELFPAY ==
[2018-07-20] MEDS ORDERED: Ondansetron 4 MG/2 ML SDV IVPUSH ONE (02:29)
[2018-07-20] MEDS ORDERED: Ketorolac 30 MG/ML SDV IVPUSH ONE (02:29)
[2018-07-20] MEDS ORDERED: Sodium Chloride 0.9% 1,000 ML IV ONE (02:29)
--- NOTE | 2018-07-20 02:29 | EDM.PDOC ---
ED HPI GENERAL MEDICAL PROBLEM - General Chief Complaint: Abdominal Pain Stated Complaint: STOMACH HURTS Time Seen by Provider: 07/20/18 02:29 Source of Information: Reports: Patient - History of Present Illness INITIAL COMMENTS - FREE TEXT/NARRATIVE: HISTORY AND PHYSICAL: History of present illness: [A shunt woke from sleep with 10 out of 10 right lower quadrant pain ] Review of systems: As per history of present illness and below otherwise all systems reviewed and negative. Past medical history: As per history of present illness and as reviewed below otherwise noncontributory. Surgical history: As per history of present illness and as reviewed below otherwise noncontributory. Social history: No reported history of drug or alcohol abuse. Family history: As per history of present illness and as reviewed below otherwise noncontributory. Physical exam: HEENT: Atraumatic, normocephalic, pupils reactive, negative for conjunctival pallor or scleral icterus, mucous membranes moist, throat clear, neck supple, nontender, trachea midline. Lungs: Clear to auscultation, breath sounds equal bilaterally, chest nontender. Heart: S1S2, regular, negative for clicks, rubs, or JVD. Abdomen: Soft, nondistended, nontender. Negative for masses or hepatosplenomegaly. Negative for costovertebral tenderness. Pelvis: Stable nontender. Genitourinary: Deferred. Rectal: Deferred. Extremities: Atraumatic, negative for cords or calf pain. Neurovascular unremarkable. Neuro: Awake, alert, oriented. Cranial nerves II through XII unremarkable. Cerebellum unremarkable. Motor and sensory unremarkable throughout. Exam nonfocal. Diagnostics: [CBC CMP UA troponin lipase CT abdomen pelvis with and without contrast ] Therapeutics: [Saline Toradol Zofran Keflex Flomax Zofran [place] urine ] Impression:4 mm right ureteral stone definnitive disposition and diagnosis as appropriate pending reevaluation and review of above. Right Lower Abdominal Pain Score (Numeric/FACES): 5 - Related Data Allergies Allergy/AdvReac Type Severity Reaction Status Date / Time No Known Allergies Allergy Verified 07/20/18 02:36 Home Meds: Home Meds . [No Known Home Meds] 07/20/18 [History] Past Medical History Respiratory History: Reports: COPD - Past Surgical History Head Surgeries/Procedures: Reports: None Social & Family History - Family History Family Medical History: Noncontributory - Caffeine Use Caffeine Use: Reports: Energy Drinks ED ROS GENERAL - Review of Systems Review Of Systems: See Below ED EXAM, GENERAL - Physical Exam Exam: See Below Course - Vital Signs Last Recorded V/S: Last Vital Signs Temp 98 F 07/20/18 02:38 Pulse 73 07/20/18 03:25 Resp 18 07/20/18 03:25 BP 173/96 H 07/20/18 03:25 Pulse Ox 99 07/20/18 03:25 - Orders/Labs/Meds Orders: Active Orders 24 hr Category Date Time Status EKG 12 Lead [EKG Documentation Completion] [RC] AM Care 07/20/18 02:30 Active UA RFX COURTNEY AND CULT IF INDIC [URIN] Stat Lab 07/20/18 02:28 Ordered Tamsulosin [Flomax] Med 07/20/18 08:30 Active 0.8 mg PO PCBREAKFAST Medication Orders Tamsulosin HCl (Flomax) 0.8 mg PO PCBREAKFAST GALINDO Labs: Laboratory Tests 07/20/18 07/20/18 Range/Units 03:00 03:00 WBC 15.14 H (4.0-11.0) K/uL RBC 5.10 (4.50-5.90) M/uL Hgb 16.2 (13.0-17.0) g/dL Hct 47.6 (38.0-50.0) % MCV 93.3 (80.0-98.0) fL MCH 31.8 (27.0-32.0) pg MCHC 34.0 (31.0-37.0) g/dL RDW Std Deviation 46.8 (28.0-62.0) fl RDW Coeff of Shannan 14 (11.0-15.0) % Plt Count 296 (150-400) K/uL MPV 10.10 (7.40-12.00) fL Neut % (Auto) 88.3 H (48.0-80.0) % Lymph % (Auto) 5.5 L (16.0-40.0) % [place] % (Auto) 5.0 (0.0-15.0) % Eos % (Auto) 0.7 (0.0-7.0) % Baso % (Auto) 0.5 (0.0-1.5) % Neut # (Auto) 13.4 H (1.4-5.7) K/uL Lymph # (Auto) 0.8 (0.6-2.4) K/uL [place] # (Auto) 0.8 (0.0-0.8) K/uL Eos # (Auto) 0.1 (0.0-0.7) K/uL Baso # (Auto) 0.1 (0.0-0.1) K/uL Nucleated RBC % 0.0 /100WBC Nucleated RBCs # 0 K/uL Sodium 142 (136-148) mmol/L Potassium 4.7 (3.5-5.1) mmol/L Chloride 106 (98-107) mmol/L Carbon Dioxide 28.1 (21.0-32.0) mmol/L BUN 16 (7.0-18.0) mg/dL Creatinine 1.4 H (0.8-1.3) mg/dL Est Cr Clr Drug Dosing 59.62 mL/min Estimated GFR (MDRD) 52.6 ml/min Glucose 131 H (74-106) mg/dL Calcium 9.7 (8.5-10.1) mg/dL Total Bilirubin 0.1 L (0.2-1.0) mg/dL AST 28 (15-37) IU/L ALT 62 (14-63) IU/L Alkaline Phosphatase 103 (46-116) U/L Creatine Kinase 120 (26-308) U/L Troponin I < 0.050 (0.000-0.056) ng/mL Total Protein 7.5 (6.4-8.2) g/dL Albumin 3.6 (3.4-5.0) g/dL Globulin 3.9 (2.6-4.0) g/dL Albumin/Globulin Ratio 0.9 (0.9-1.6) Lipase 136 (73-393) U/L Meds: Medications Generic Name Dose Route Start Last Admin Trade Name Freq PRN Reason Stop Dose Admin Tamsulosin HCl 0.8 mg 07/20/18 08:30 Flomax PO PCBREAKFAST GALINDO Discontinued Medications Generic Name Dose Route Start Last Admin Trade Name Freq PRN Reason Stop Dose Admin Sodium Chloride 1,000 mls @ 999 mls/hr 07/20/18 02:29 07/20/18 03:00 Normal Saline IV 07/20/18 03:29 999 mls/hr STAT ONE Administration Ketorolac Tromethamine 30 mg 07/20/18 02:29 07/20/18 03:01 Toradol IVPUSH 07/20/18 02:30 Not Given ONETIME ONE Methylprednisolone Sodium Succinate 125 mg 07/20/18 04:15 Solu-Medrol IVPUSH 07/20/18 04:16 ONETIME ONE Ondansetron HCl 8 mg 07/20/18 02:29 07/20/18 03:00 Zofran IVPUSH 07/20/18 02:30 8 mg ONETIME ONE Administration Departure - Departure Time of Disposition: 04:21 Disposition: Home, Self-Care 01 Condition: Good Clinical Impression: Ureteral stone - Discharge Information Referrals: PCP,None [Primary Care Provider] - Forms: ED Department Discharge Additional Instructions: The following information is given to patients seen in the emergency department who are being discharged to home. This information is to outline your options for follow-up care. We provide all patients seen in our emergency department with a follow-up referral. The need for follow-up, as well as the timing and circumstances, are variable depending upon the specifics of your emergency department visit. If you don't have a primary care physician on staff, we will provide you with a referral. We always advise you to contact your personal physician following an emergency department visit to inform them of the circumstance of the visit and for follow-up with them and/or the need for any referrals to a consulting specialist. The emergency department will also refer you to a specialist when appropriate. This referral assures that you have the opportunity for follow-up care with a specialist. All of these measure are taken in an effort to provide you with optimal care, which includes your follow-up. Under all circumstances we always encourage you to contact your private physician who remains a resource for coordinating your care. When calling for follow-up care, please make the office aware that this follow-up is from your recent emergency room visit. If for any reason you are refused follow-up, please contact the [facility] emergency department at and asked to speak to the emergency department charge nurse. - My Orders Last 24 Hours: My Active Orders 07/20/18 02:28 UA RFX COURTNEY AND CULT IF INDIC [URIN] Stat 07/20/18 02:30 EKG 12 Lead [EKG Documentation Completion] [RC] AM 07/20/18 08:30 Tamsulosin [Flomax] 0.8 mg PO PCBREAKFAST - Assessment/Plan Last 24 Hours: My Active Orders 07/20/18 02:28 UA RFX COURTNEY AND CULT IF INDIC [URIN] Stat 07/20/18 02:30 EKG 12 Lead [EKG Documentation Completion] [RC] AM 07/20/18 08:30 Tamsulosin [Flomax] 0.8 mg PO PCBREAKFAST
[2018-07-20 03:28] LABS: CHLORIDE,CL 106 mmol/L (98-107); SODIUM,NA 142 mmol/L (136-148)
--- NOTE | 2018-07-20 04:11 | CT ---
INDICATION: Right flank pain TECHNIQUE: CT abdomen and pelvis without contrast. COMPARISON: None. FINDINGS: Lower chest: Mild centrilobular emphysema. Liver: Normal in size and attenuation. No masses. Gallbladder and bile ducts: No stones or inflammation. No biliary dilatation. Pancreas: Unremarkable. No mass or inflammation. Spleen: Normal in size. No masses. Adrenal glands: Normal in size. No nodules. Kidneys: Left kidney is normal in contour with at least 4 nonobstructing stones, largest measuring 3 millimeters. No left hydronephrosis or left ureteral stone. Mild inflammatory fat stranding surrounding the right kidney with the least 3 nonobstructing stones, largest measuring 4 millimeters. Mild right hydronephrosis with a proximal right ureteral stone measuring 4 x 3 x 5 millimeters. GI tract: The stomach is unremarkable. Note is made of a fat containing paraumbilical hernia. No dilated loops of large or small intestine. Appendix is seen and is unremarkable. Vasculature: Atherosclerosis without abdominal aortic aneurysm. Pelvis: Unremarkable. No pelvic masses. Bones: Mild degenerative disc disease thoracolumbar spine. IMPRESSION: 1. Nephrolithiasis with mild right hydronephrosis and proximal right ureteral stone measuring 4 x 3 x 5 millimeters. Please note that all CT scans at this facility use dose modulation, iterative reconstruction, and/or weight-based dosing when appropriate to reduce radiation dose to as low as reasonably achievable. Dictated by Joe Chiang MD @ Jul 20 2018 4:04AM Signed by Dr. Joe Chiang @ Jul 20 2018 4:10AM
[2018-07-20] MEDS ORDERED: methylPREDNISolone Sodium Succinate 125 MG/2 ML SDV IVPUSH ONE (04:15)
[2018-07-20 04:34] VITALS: BP 172/101
[2018-07-20] MEDS ORDERED: Tamsulosin 0.4 MG Cap.ER ONE (04:55)
[2018-07-20] MEDS ORDERED: Tamsulosin 0.4 MG Cap.ER PO STA (04:57)
[2018-07-20] MEDS ORDERED: Tamsulosin 0.4 MG Cap.ER PO SCH (08:30)
== END 2018-07-20 05:04 | disposition home or self-care (01) ==
LOC: MW.ED 02:20
DX: N13.2 Hydronephrosis with renal and ureteral calculous obstruction (principal); J44.9 Chronic obstructive pulmonary disease, unspecified
CPT/HCPCS: 36415; 74176; 80053; 81001; 82550; 83690; 84484; 85025; 93005; 96361; 96374; 96375; 99284; A9270; J2405; J2930; J7040; 99283